=== PATIENT | female | born 1990 | race Caucasian/White ===

== ENCOUNTER 2023-05-23 13:31 | Emergency (ER) | payer MEDICAID ==
[~2023-05-23] VITALS: Ht 170.2 cm; Wt 77.0 kg
[~2023-05-23 13:31] MED LIST: NITR-87 PO
[2023-05-23] MEDS ORDERED: HYDROmorphone HCL 2 MG/ML VL/or syr IV ONE (13:45)
[2023-05-23] MEDS ORDERED: PROCHLORPERAZINE EDISYLATE 5 MG/ML 2ML VIAL IV ONE (13:45)
[2023-05-23 14:04] LABS: Basophils # (auto) 0 10 ^3/uL (0-0.2); Basophils % (auto) 0.7 % (0.0-2.0); Eosinophils # (auto) 0.1 10 ^3/uL (0-0.8); Eosinophils % (auto) 2.5 % (0.0-7.0); Hematocrit 37.9 % (36.0-46.0); Hemoglobin 12.5 g/dL (12.2-16.2); Lymphocytes # (auto) 1.4 10 ^3/uL (0.4-5.4); Lymphocytes % (auto) 31.5 % (10.0-50.0); Mean Corpuscular Hemoglobin 30.4 pg (28.0-32.0); Mean Corpuscular Volume 92.2 fL (80.0-100.0); Monocytes # (auto) 0.3 10 ^3/uL (0-1.3); Monocytes % (auto) 6.8 % (0.0-12.0); Neutrophils # (auto) 2.5 10 ^3/uL (1.6-8.6); Neutrophils % (auto) 58.5 % (37.0-80.0); Nucleated Red Blood Cells % 0.1 %; Red Blood Cells 4.11 10^6/uL (4.0-5.20); Red Cell Distribution Width 13.6 % (11.8-14.3); White Blood Cell 4.4 10^3/uL (4.4-10.8)
[2023-05-23 14:23] LABS: Alanine Aminotransferase 10 U/L (7-40); Alkaline Phosphatase 50 U/L (46-116); Anion Gap 4 (5-15); Aspartate Aminotransferase 16 U/L (13-40); BUN/Creatinine Ratio 7.9 (10.0-20.0); Bilirubin, Total 1.1 mg/dL (0.2-1.0); Blood Urea Nitrogen 6 mg/dL (9-23); Calcium 8.6 mg/dL (8.7-10.4); Carbon Dioxide 27 mmol/L (20-30); Chloride 109 mmol/L (98-107); Glucose 89 mg/dL (74-106); Potassium 4.5 mmol/L (3.5-5.1); Sodium 140 mmol/L (136-145); Total Protein 6.7 g/dL (5.7-8.2)
[2023-05-23 14:54] VITALS: PULSE 54; RESP 10; TEMP 98.2; O2SAT 90
[2023-05-23 16:58] VITALS: BP 101/52; PULSE 56; RESP 14; O2SAT 99
== END 2023-05-23 16:58 | disposition home or self-care (01) ==
LOC: EDBD 13:31 → ER 13:31
DX: R51.9 Headache, unspecified (principal); J45.909 Unspecified asthma, uncomplicated
CPT/HCPCS: 36415; 70450; 80053; 85025; 96374; 96375; 99285; J0780; J1170

== ENCOUNTER 2023-09-24 05:48 | Emergency (ER) | payer MEDICAID ==
[~2023-09-24] VITALS: Ht 170.2 cm; Wt 77.7 kg
[2023-09-24 05:48] VITALS: BP 106/78; PULSE 78; RESP 20; O2SAT 97
[~2023-09-24 05:48] MED LIST changes: +AMOX875T3 PO; +IBUP-1456 PO
== END 2023-09-24 08:08 | disposition left against medical advice (07) ==
LOC: ER 05:48
DX: J06.9 Acute upper respiratory infection, unspecified (principal); R42 Dizziness and giddiness; F41.9 Anxiety disorder, unspecified; F32.9 Major depressive disorder, single episode, unspecified; J45.909 Unspecified asthma, uncomplicated; Z79.899 Other long term (current) drug therapy